=== PATIENT | female | born 1935 | race African-American/Black ===

== ENCOUNTER 2018-05-21 08:50 | Outpatient (CLI) | payer MEDICARE ==
--- NOTE | 2018-05-21 10:12 | MMO ---
Bilateral MAMMO Bilat Screen [facility]. CLINICAL HISTORY: Patient is 82 years old and is seen for screening. The patient has no family history of breast cancer. 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 VIEWS: The views performed were: right craniocaudal with tomosynthesis and right mediolateral oblique with tomosynthesis. FILMS COMPARED: The present examination has been compared to prior imaging studies performed at [facility] on 06/02/2006, 06/03/2006, 11/09/2006, 12/02/2007, 12/04/2008, 12/07/2009, 12/09/2010, 11/25/2011, 11/26/2012, 11/28/2013, 11/30/2014, 12/19/2015 and 12/19/2016, and at [facility] on 06/22/1998 and 05/16/2005. MAMMOGRAM FINDINGS: There are stable benign appearing calcifications seen in both breasts. There are also vascular calcifications. There are no suspicious masses, suspicious calcifications, or new areas of architectural distortion. IMPRESSION: THERE IS NO MAMMOGRAPHIC EVIDENCE OF MALIGNANCY. A ROUTINE FOLLOW-UP MAMMOGRAM IN 1 YEAR IS RECOMMENDED. THE RESULTS OF THIS EXAM WERE SENT TO THE PATIENT. ACR BI-RADS Category 2 - Benign finding MAMMOGRAPHY NOTE: 1. A negative mammogram report should not delay a biopsy if a dominant of clinically suspicious mass is present. 2. Approximately 10% to 15% of breast cancers are not detected by mammography. 3. Adenosis and dense breasts may obscure an underlying neoplasm.
== END 2018-05-21 08:51 | disposition home or self-care (01) ==
LOC: BICMAMMO 08:50
PROVIDERS: ATTEND Internal Medicine
DX: Z12.31 Encounter for screening mammogram for malignant neoplasm of breast (principal); Z90.12 Acquired absence of left breast and nipple
CPT/HCPCS: 77063; 77067

== ENCOUNTER 2018-07-19 10:57 | Inpatient (IN) | payer MEDICARE ==
[2018-07-19 11:44] LABS: Mean Corpuscular HGB CONC 36.2 g/dL (32.0-36.0); Mean Corpuscular Hemoglobin 29.6 pg (27.0-31.0); Mean Corpuscular Volume 81.9 fL (78.0-98.0); Mean Platelet Volume 6.8 fL (7.4-10.4); Platelet Count 205 thou/uL (130-400); RBC Distribution Width 12.6 % (11.5-14.5); Red Blood Cell (RBC) Count 4.38 mill/uL (4.20-5.40)
--- NOTE | 2018-07-19 11:47 | RAD ---
2 views of the chest: 07/19/2018 COMPARISON: None HISTORY: Cough, dyspnea FINDINGS: Hazy focal increased pulmonary parenchymal opacity noted within the left lung base. No pneu mothorax or pleural fluid. Right lung appears clear. IMPRESSION: Focal opacity in the left base suggesting infectious pneumonitis/aspiration. Recommend fo llow-up imaging following treatment to document resolution.
[2018-07-19 12:12] LABS: ALT (SGPT) 14 U/L (8-55); AST (SGOT) 23 U/L (5-34); Albumin 3.8 g/dL (3.4-4.8); Alkaline Phosphatase 92 U/L (40-150); Anion Gap 13 mmol/L (10-20); BUN (Urea Nitrogen) 13 mg/dL (9.8-20.1); Bilirubin, Total 1.8 mg/dL (0.2-1.2); Calc. Creatinine Clearance 0 mL/min (70-130); Calcium 9.5 mg/dL (7.8-10.44); Carbon Dioxide 26 mmol/L (23-31); Chloride 100 mmol/L (98-107); Estimated GFR-MDRD 71; Globulin 3.1 g/dL (2.4-3.5); Glucose 114 mg/dL (83-110); Potassium 3.4 mmol/L (3.5-5.1); Protein, Total 6.9 g/dL (6.0-8.3); Sodium 136 mmol/L (136-145)
[2018-07-19 12:13] LABS: Band 13 % (5-11); Eosinophils 1 % (0-10); Lymphocytes 7 % (21-51); MDiff Complete? YES; Monocytes 6 % (0-10); Neutrophil 73 % (42-75); Platelet Morphology Comment Appears Adequate; Polychromasia SLIGHT = 2-3 cells (100X) (0-2/hpf); Vacuoles SLIGHT
[2018-07-19] MEDS ORDERED: Piperacillin/Tazobactam 4.5 GM VIAL ONE (14:16)
--- NOTE | 2018-07-19 17:43 | HP ---
PRIMARY CARE PHYSICIAN: Dr. Lucian Unger. CHIEF COMPLAINT: "I was feeling sick." HISTORY OF PRESENT ILLNESS: Ms. Littlejohn is a very pleasant 83-year-old female, who has a history of hypertension as well as gastroesophageal reflux disease. She was in her usual state of health until Thursday night when she started having a sore throat. She says on Thursday, she just ate a few pieces of toast and that was about it. Then, she says she must have slept all day on Thursday, because she thought today was Thursday. She says that she has been sick in bed most of the day and that she says that she gargled earlier today and had some mucus come up with some specks of blood, but she did not really consider coughing with blood. She says that her son noticed that she had some fever and she noticed some pain in her left side, especially when she was taking a deep breath. For this reason, she came to the hospital for evaluation. Upon evaluation, she was found to have a left lower lobe infiltrate as well as leukocytosis and she is being admitted for pneumonia. REVIEW OF SYSTEMS: CONSTITUTIONAL: She has had subjective fever, but no chills, no night sweats, no weight loss, but decreased appetite. HEENT: No headaches. No dizziness. No visual changes. She has had some sore throat and scratchy throat, but no adenopathy. No neck pain. PULMONARY: As the history of present illness. CARDIOVASCULAR: She denies chest pain. No shortness of breath. No PND. No orthopnea. No lower extremity edema. GASTROINTESTINAL: She denies any abdominal pain. She did have some episode of nausea and vomiting as well as diarrhea on Thursday, but this has since resolved. GENITOURINARY: No urinary frequency, hematuria, or hesitancy. NEUROLOGIC: No focal weakness, numbness. No seizures. PSYCHIATRIC: No symptoms of anxiety or depression. SKIN AND INTEGUMENT: No skin changes. No rash. PAST MEDICAL HISTORY: Significant for hypertension, osteoarthritis, gastroesophageal reflux disease, coronary artery disease, and hyperlipidemia as well as anxiety. PAST SURGICAL HISTORY: She has had a right total knee replacement and a left mastectomy. ALLERGIES: NO KNOWN DRUG ALLERGIES. FAMILY HISTORY: Father had cancer, unknown type. Brother had hypertension. SOCIAL HISTORY: She is , has 4 children. She is a nonsmoker and nondrinker. She tells me she would not want to be resuscitated. This is after repeated questioning, she says she is not sure if her children know about this, but says she had filled out some paperwork back when she was in the hospital in [place], but says "she has not done it here." CURRENT MEDICATIONS: Unknown. She gets her medications through the mail order [facility] [employer]. PHYSICAL EXAMINATION: GENERAL: She is alert and oriented. She appears to be in no acute distress. She is well developed and well nourished. VITAL SIGNS: Blood pressure was 113/56, heart rate 69, respiratory rate of 20, and temperature is 98.7. HEENT: Her pupils are equal, round, and reactive to light and accommodation. Tympanic membrane, she had some clear fluid behind the left drum, but there is no bulging. No erythema. Throat, she is edentulous. However, her throat, there is no erythema, no exudates. No oral lesions. NECK: There is no adenopathy, no bruits. LUNGS: She has rales in the left base. No wheezing. No rhonchi. CARDIOVASCULAR: She has a normal S1 and S2. I did not appreciate an S3 or S4. No murmurs, clicks, or rubs. ABDOMEN: Soft. It is nontender and nondistended. Positive for bowel sounds. There is no rebound, no guarding, no organomegaly. EXTREMITIES: There is no edema, no calf tenderness, no joint effusions. NEUROLOGIC: Grossly nonfocal. Her muscle strength is 5/5 in both upper and lower extremities. SKIN AND INTEGUMENT: No skin changes. No rashes. LAB AND X-RAY: On her chest x-ray, heart size was normal and she has some obscuration of the left hemidiaphragm as well as some infiltrate in the left face, this is by my reading. White blood cell count was 21, hemoglobin of 13, hematocrit is 35.8, and platelet count is 205. Sodium 136, potassium 3.4, chloride was 100, CO2 is 26, BUN of 13, creatinine 0.92, glucose is 114, and total bilirubin is 1.8. ASSESSMENT: This is a pleasant 83-year-old female, who presents to the emergency room with subjective fever, poor appetite and what sounds like a pleuritic chest pain. She was found to have a left lower lobe infiltrate on x-ray as well as an elevated white blood cell count. The most likely etiology is a community-acquired pneumonia. She will be admitted to the medical floor, started on IV antibiotics to cover for community-acquired pneumonia. Since she had the episode of diarrhea, we will get a urine Legionella antigen as well, and follow up on blood and sputum culture results. Hypertension. We will need to reconcile and restart her medications as appropriate and we will also have p.r.n. medications available as needed and the patient will also be placed on deep venous thrombosis as well as gastrointestinal prophylaxis. Job ID: [id number]
[2018-07-19 18:16] VITALS: BMI 34.7
[2018-07-19] MEDS ORDERED: Benzonatate 100 MG CAP PO PRN (19:13)
[2018-07-19] MEDS ORDERED: hydrALAZINE 20 MG/ML VIAL SLOW IVP PRN (19:13)
[2018-07-19] MEDS ORDERED: HYDROcodone/Acetaminophen 5/325 mg Tablet PO PRN (19:13)
[2018-07-19] MEDS: Famotidine 20 MG TAB PO SCH (20:25)
[2018-07-19] MEDS: Acetaminophen 325 MG TAB PO PRN (20:25)
[2018-07-19] MEDS: Azithromycin 500 MG in Sodium Chloride 0.9% 250 ML 250 ML IVPB SCH (20:25)
[2018-07-19] MEDS ORDERED: Prevnar 13-Val Conj/PF 0.5 ML SYRINGE IM ONE (21:00)
[2018-07-19] MEDS: cefTRIAXone\\ROCEPHIN 2 GM in Sodium Chloride 0.9% 100 ML IVPB SCH (22:47)
[2018-07-20] MEDS: Acetaminophen 325 MG TAB PO PRN ×3 (05:45→19:27)
[2018-07-20 06:18] LABS: Anion Gap 14 mmol/L (10-20); BUN (Urea Nitrogen) 10 mg/dL (9.8-20.1); Calc. Creatinine Clearance 102 mL/min (70-130); Calcium 9.3 mg/dL (7.8-10.44); Carbon Dioxide 27 mmol/L (23-31); Chloride 99 mmol/L (98-107); Estimated GFR-MDRD 82; Glucose 111 mg/dL (83-110); Potassium 3.6 mmol/L (3.5-5.1); Sodium 136 mmol/L (136-145)
[2018-07-20 06:19] LABS: Legionella Urinary Ag Negative (Negative)
[2018-07-20 06:27] LABS: Band 10 % (5-11); Eosinophils 2 % (0-10); Hemoglobin 12.5 g/dL (12.0-16.0); Lymphocytes 12 % (21-51); MDiff Complete? YES; Mean Corpuscular HGB CONC 34.6 g/dL (32.0-36.0); Mean Corpuscular Volume 83.7 fL (78.0-98.0); Mean Platelet Volume 6.6 fL (7.4-10.4); Monocytes 15 % (0-10); Neutrophil 61 % (42-75); Platelet Count 203 thou/uL (130-400); RBC Distribution Width 12.7 % (11.5-14.5); Red Blood Cell (RBC) Count 4.31 mill/uL (4.20-5.40); White Blood Cell (WBC) Count 18.4 thou/uL (4.8-10.8)
[2018-07-20] MEDS: Enoxaparin Sodium 40 MG/0.4 ML SYRINGE SC SCH (08:43)
[2018-07-20] MEDS: Famotidine 20 MG TAB PO SCH ×2 (08:43→21:18)
--- NOTE | 2018-07-20 14:20 | PDOC.PN ---
- Subjective Encounter Start Date: 07/20/18 Encounter Start Time: 14:18 Ms. Littlejohn was seen today in follow-up of pneumonia. She says she feels much better. She still has a bit of cough with pleuritic chest pain. - Objective Resuscitation Status - Order Detail: 07/19/18 15:36 Resuscitation Status Routine Resuscitation Status: DNAR: NO Resuscitation Discussed with: Discussed with the patient MAR Reviewed: Yes Vital Signs & Weight: Vital Signs (12 hours) Temp Pulse Resp BP Pulse Ox 07/20/18 11:00 99.3 F 85 20 117/71 94 L 07/20/18 08:00 96 07/20/18 07:35 98.7 F 81 22 H 119/71 96 07/20/18 04:17 100.0 F H 85 14 134/76 93 L Weight Weight 271 lb I&O: 07/19/18 07/20/18 07/21/18 06:59 06:59 06:59 Intake Total 1209 Balance 1209 Result Diagrams: 07/20/18 05:23 07/20/18 05:22 Phys Exam - Physical Examination HEENT: PERRLA Respiratory: no wheezing, no rhonchi + rales at the left base, Cardiovascular: RRR, no significant murmur, no rub Gastrointestinal: soft, non-tender, no distention, positive bowel sounds Musculoskeletal: no edema, pulses present Dx/Plan (1) Pneumonia, community acquired Code(s): J18.9 - PNEUMONIA, UNSPECIFIED ORGANISM Status: Acute (2) Hypertension Code(s): I10 - ESSENTIAL (PRIMARY) HYPERTENSION Status: Chronic (3) CAD (coronary artery disease) Code(s): I25.10 - ATHSCL HEART DISEASE OF [place] CORONARY ARTERY W/O ANG PCTRS Status: Chronic - Plan * Pneumonia- continue Rocephin and Azithromycin. She is still having some fever , Leukocytosis has improved * HTN- blood pressure is controlled- will re-start her home medications. * CAD- stable- re-start home medications
[2018-07-20] MEDS: Azithromycin 500 MG in Sodium Chloride 0.9% 250 ML 250 ML IVPB SCH (19:27)
[2018-07-20] MEDS: cefTRIAXone\\ROCEPHIN 2 GM in Sodium Chloride 0.9% 100 ML IVPB SCH (21:18)
[2018-07-20] MEDS: DorzolamidE/Timolol 2%/0.5% Ophth Soln 10 ml Bottle EA EYE SCH (21:18)
[2018-07-20] MEDS: Latanoprost 0.005% Ophth Soln 2.5 ml Bottle EA EYE SCH (21:18)
[2018-07-20] MEDS: buPROPion 75 MG TAB PO SCH (21:19)
[2018-07-20] MEDS: Amitriptyline HCl 10 MG TAB PO SCH (21:19)
[2018-07-21] MEDS: Acetaminophen 325 MG TAB PO PRN ×3 (07:01→21:37)
[2018-07-21] MEDS ORDERED: Atenolol 25 MG TAB PO SCH (09:00)
[2018-07-21] MEDS: Aspirin 81 mg Enteric Coated Tablet PO SCH (09:34)
[2018-07-21] MEDS: Famotidine 20 MG TAB PO SCH ×2 (09:34→21:31)
[2018-07-21] MEDS: Atenolol 25 MG TAB PO SCH (09:34)
[2018-07-21] MEDS: buPROPion 75 MG TAB PO SCH ×2 (09:34→21:31)
[2018-07-21] MEDS: Atorvastatin Calcium 40 MG TAB PO SCH (09:35)
[2018-07-21] MEDS: Ezetimibe 10 MG TAB PO SCH (09:35)
[2018-07-21] MEDS: DorzolamidE/Timolol 2%/0.5% Ophth Soln 10 ml Bottle EA EYE SCH ×2 (09:36→21:31)
[2018-07-21] MEDS: Enoxaparin Sodium 40 MG/0.4 ML SYRINGE SC SCH (09:36)
--- NOTE | 2018-07-21 09:48 | PDOC.PN ---
- Subjective Encounter Start Date: 07/21/18 Encounter Start Time: 09:45 Subjective: f/u for LLL PNA on Rocephin/Zithromax. Feels better overall but still -: coughing. Tolerating po intake. - Objective Resuscitation Status - Order Detail: 07/19/18 15:36 Resuscitation Status Routine Resuscitation Status: DNAR: NO Resuscitation Discussed with: Discussed with the patient MAR Reviewed: Yes Vital Signs & Weight: Vital Signs (12 hours) Temp Pulse Resp BP Pulse Ox 07/21/18 08:22 98.5 F 72 18 135/75 96 07/21/18 07:49 99.1 F 91 20 135/75 91 L 07/21/18 05:44 99.5 F 07/21/18 03:57 100.0 F H 93 18 107/79 90 L 07/20/18 23:53 99.1 F 92 16 107/67 90 L Weight Weight 271 lb I&O: 07/20/18 07/21/18 07/22/18 06:59 06:59 06:59 Intake Total 1209 1996 Balance 1209 1996 Result Diagrams: 07/20/18 05:23 07/20/18 05:22 Additional Labs: Laboratory Tests 07/19/18 07/20/18 07/20/18 11:16 05:23 05:52 WBC 21.0 H Band Neuts % (Manual) 13 H 10 Ur L.pneumophila Ag Negative Radiology Reviewed by me: Yes (PCXR - LLL infiltrate) Phys Exam - Physical Examination Constitutional: NAD HEENT: PERRLA, sclera anicteric, oral pharynx no lesions Neck: no nodes, no JVD, supple, full ROM diminished in bases, few coarse sounds Respiratory: no wheezing Cardiovascular: RRR, no significant murmur, no rub, gallop Gastrointestinal: soft, non-tender, no distention, positive bowel sounds Musculoskeletal: no edema, pulses present Neurological: normal sensation, moves all 4 limbs Psychiatric: A&O x 3 Skin: normal turgor, cap refill <2 seconds Dx/Plan (1) Bacterial pneumonia Code(s): J15.9 - UNSPECIFIED BACTERIAL PNEUMONIA Status: Acute Comment: Suspected gm + cocci, continue Rocephin/Zithromax IV another 24h, likely transition to po option in am (2) Hypertension Code(s): I10 - ESSENTIAL (PRIMARY) HYPERTENSION Status: Chronic Qualifiers: Hypertension type: essential hypertension Qualified Code(s): I10 - Essential (primary) hypertension Comment: Resume home BP regimen, serial monitoring (3) Hypokalemia Code(s): E87.6 - HYPOKALEMIA Status: Acute Comment: Resolving, KCL supplementation (4) Neutrophilic leukocytosis Code(s): D72.9 - DISORDER OF WHITE BLOOD CELLS, UNSPECIFIED Status: Acute Comment: Secondary to #1, check CBC in am - Plan continue antibiotics, drug abuse social worker, out of bed/ambulate, DVT proph w/SCDs Stable currently -: Continue Rocephin/Zithromax IV -: OOB/ambulate -: Update Pneumo Vax -: AM lab: CBC * Likely home in 24h
--- NOTE | 2018-07-21 15:00 | PQF ---
DATE: 07-21-18 ATTN: DR. MIGUELITO JONES Please exercise your independent, professional judgment in responding to the clarification form. Clinical indicators are provided on the bottom of this form for your review Please check appropriate box(es): [ ] Sepsis due to: (Pna, , etc.) [ ] SIRS due to non-infectious process (please specify etiology) [ x ] Localized infection without sepsis [ ] Other diagnosis [ ] Unable to determine In addition, please specify: Present on Admission (POA): [ x ] Yes [ ] No [ ] Unable to determine For continuity of documentation, please document condition throughout progress notes and discharge summary. Thank You. CLINICAL INDICATORS - SIGNS / SYMPTOMS / LABS: ER DX: PNEUMONIA, LEUKOCYTOSIS H&P: MOST LIKELY ETIOLOGY IS A COMMUNITY-ACQUIRED PNEUMONIA ER: 88 ON RA, SOB, FORMER SMOKER PN DR. JONES 07-21-18: BACTERIAL PNEUMONIA, NEUTROPHILIC LEUCOCYTOSIS TEMP: ER: 99.2, 99.0, 07-19-18: 99.7, 102.0 07-20-18: 99.8, 100.0, 100.7 07-21-18: 100.0 RR: 07-20-18: 22, 22 RISK FACTORS: ER DX: PNEUMONIA, LEUKOCYTOSIS PN DR. JONES 07-21-18: BACTERIAL PNEUMONIA, NEUTROPHILIC LEUCOCYTOSIS ADVANCED AGE TREATMENTS: MAR: ZITHROMAX IV, ROCEPHIN IV ER: VANCOMYCIN IV, IVF NS, ZOSYN IV (This form is maintained as a part of the permanent medical record) 2014 [employer] All Rights Reserved JEAN PAUL [email or web address] Office: [phone] [facility]
[2018-07-21] MEDS: Azithromycin 500 MG in Sodium Chloride 0.9% 250 ML 250 ML IVPB SCH (19:28)
[2018-07-21] MEDS: Latanoprost 0.005% Ophth Soln 2.5 ml Bottle EA EYE SCH (21:31)
[2018-07-21] MEDS: Amitriptyline HCl 10 MG TAB PO SCH (21:31)
[2018-07-21] MEDS: cefTRIAXone\\ROCEPHIN 2 GM in Sodium Chloride 0.9% 100 ML IVPB SCH (21:31)
[2018-07-22] MEDS: Acetaminophen 325 MG TAB PO PRN ×2 (05:56→10:20)
[2018-07-22] MEDS: Aspirin 81 mg Enteric Coated Tablet PO SCH (08:21)
[2018-07-22] MEDS: Ezetimibe 10 MG TAB PO SCH (08:21)
[2018-07-22] MEDS: Famotidine 20 MG TAB PO SCH (08:21)
[2018-07-22] MEDS: buPROPion 75 MG TAB PO SCH (08:21)
[2018-07-22] MEDS: Atenolol 25 MG TAB PO SCH (08:21)
[2018-07-22] MEDS: Atorvastatin Calcium 40 MG TAB PO SCH (08:21)
[2018-07-22] MEDS: Enoxaparin Sodium 40 MG/0.4 ML SYRINGE SC SCH (08:22)
[2018-07-22] MEDS: DorzolamidE/Timolol 2%/0.5% Ophth Soln 10 ml Bottle EA EYE SCH (08:22)
[2018-07-22 09:30] LABS: Band 6 % (5-11); Eosinophils 4 % (0-10); Hemoglobin 11.9 g/dL (12.0-16.0); Lymphocytes 14 % (21-51); MDiff Complete? YES; Mean Corpuscular HGB CONC 35.4 g/dL (32.0-36.0); Mean Corpuscular Hemoglobin 29.2 pg (27.0-31.0); Mean Corpuscular Volume 82.4 fL (78.0-98.0); Mean Platelet Volume 6.3 fL (7.4-10.4); Monocytes 14 % (0-10); Neutrophil 59 % (42-75); Platelet Count 258 thou/uL (130-400); RBC Distribution Width 12.7 % (11.5-14.5); RBC Morphology Normal; Reactive Lymphocytes 3 % (0-10); Red Blood Cell (RBC) Count 4.09 mill/uL (4.20-5.40); White Blood Cell (WBC) Count 10.2 thou/uL (4.8-10.8)
--- NOTE | 2018-07-22 10:42 | DIS ---
DATE OF ADMISSION: 07/19/2018 DATE OF DISCHARGE: 07/22/2018 DISCHARGE DIAGNOSES: 1. Bacterial pneumonia, suspected gram-positive cocci, improved. 2. Hypertension, stable. 3. Hypokalemia, resolved. 4. Neutrophilic leukocytosis, resolved. CONSULTATIONS: None. PERTINENT LABORATORY AND X-RAY FINDINGS: Potassium ranged between 3.4 to 3.6. CBC showed a white blood cell count ranging between 10.2 to 21.0. Urine Legionella pneumophila antigen negative on 07/20/2018. Portable chest x-ray dated 07/19/2018, showed focal opacity in the left lung base. HOSPITAL COURSE: The patient was admitted to the medical floor and she presented with generalized weakness with associated cough and pain on her left flank region. The patient underwent general evaluation including chest imaging showing focal opacity in the left lower lobe concerning for pneumonia. The patient was placed on IV Rocephin and Zithromax and given general supportive management. The patient did receive DuoNeb for bronchodilation and oxygen support, however, was weaned off oxygen therapy by the time of discharge. The patient clinically improved with IV antibiotic therapy and general supportive care. I have examined the patient at the time of discharge and discussed followup instructions. The patient verbalized understanding and in agreement, ready for discharge on 07/22/2018. DISCHARGE MEDICATIONS: 1. Levaquin 750 mg p.o. daily x7 days. 2. Elavil 10 mg p.o. at bedtime. 3. Enteric-coated aspirin 81 mg p.o. daily. 4. Atenolol 12.5 mg p.o. daily. 5. Lipitor 40 mg p.o. daily. 6. Wellbutrin 75 mg p.o. b.i.d. 7. Cosopt ophthalmic solution one drop to each eye b.i.d. 8. Zetia 10 mg p.o. daily. 9. Lansoprazole 30 mg p.o. daily. 10. Latanoprost 0.05% one drop to each eye at bedtime. 11. Triamterene/hydrochlorothiazide 37.5/25 mg 1 tab p.o. daily. FOLLOWUP: The patient to follow up with her primary care provider, Dr. Lucian singh within 7 days of discharge. CONDITION ON DISCHARGE: Stable. ACTIVITY: Ad-bhargav. DIET: Heart healthy. CODE STATUS: Do not attempt resuscitation. DISPOSITION: To home on 07/22/2018. Job ID: [id number]
[2018-07-22 11:21] VITALS: TEMP 98.8
[2018-07-22 12:42] VITALS: BP 132/76
--- NOTE | 2018-07-24 17:02 | EKG ---
Test Reason : Blood Pressure : / mmHG Vent. Rate : 077 BPM Atrial Rate : 077 BPM P-R Int : 216 ms QRS Dur : 086 ms QT Int : 398 ms P-R-T Axes : 021 -17 047 degrees QTc Int : 450 ms Sinus rhythm with 1st degree A-V block Moderate voltage criteria for LVH, may be normal variant Nonspecific T wave abnormality Abnormal ECG Confirmed by RAVEN YANG MD ([id number]), editor book ELIAS ABDI ([id number]) on 07/24/2018 5:02:43 PM Referred By: Confirmed By:RAVEN YANG MD
== END 2018-07-22 14:50 | disposition home or self-care (01) | DRG 195 ==
LOC: ERS 10:57 → T4-A 14:30
PROVIDERS: ADMIT Internal Medicine; ATTEND Internal Medicine
DX: J18.9 Pneumonia, unspecified organism (principal); Z66 Do not resuscitate; I10 Essential (primary) hypertension; E87.6 Hypokalemia; E78.5 Hyperlipidemia, unspecified; F41.9 Anxiety disorder, unspecified; M19.90 Unspecified osteoarthritis, unspecified site; K21.9 Gastro-esophageal reflux disease without esophagitis; D72.9 Disorder of white blood cells, unspecified; I25.10 Atherosclerotic heart disease of native coronary artery without angina pectoris; Z96.651 Presence of right artificial knee joint; Z87.891 Personal history of nicotine dependence; Z90.12 Acquired absence of left breast and nipple
CPT/HCPCS: 36415; 71046; 80048; 80053; 83605; 84484; 85007; 85025; 85027; 87899; 93005; 96361; 96365; 96367; J0456; J0696; J1650; J2543; J3370; J3490; J7050

== ENCOUNTER 2019-06-10 12:50 | Outpatient (CLI) | payer MEDICARE ==
--- NOTE | 2019-06-10 13:39 | MMO ---
Bilateral MAMMO Bilat Screen [facility]. CLINICAL HISTORY: Patient is 83 years old and is seen for screening. The patient has no family history of breast cancer. 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 VIEWS: The views performed were: right craniocaudal with tomosynthesis and right mediolateral oblique with tomosynthesis. FILMS COMPARED: The present examination has been compared to prior imaging studies performed at [facility] on 11/30/2014, 12/19/2015, 12/19/2016 and 05/21/2018. This study has been interpreted with the assistance of computer-aided detection. MAMMOGRAM FINDINGS: There are scattered fibroglandular densities. There are benign appearing and vascular calcifications seen in the right breast. There are no suspicious masses, suspicious calcifications, or new areas of architectural distortion. IMPRESSION: THERE IS NO MAMMOGRAPHIC EVIDENCE OF MALIGNANCY. A ROUTINE FOLLOW-UP MAMMOGRAM IN 1 YEAR IS RECOMMENDED. THE RESULTS OF THIS EXAM WERE SENT TO THE PATIENT. ACR BI-RADS Category 2 - Benign finding MAMMOGRAPHY NOTE: 1. A negative mammogram report should not delay a biopsy if a dominant of clinically suspicious mass is present. 2. Approximately 10% to 15% of breast cancers are not detected by mammography. 3. Adenosis and dense breasts may obscure an underlying neoplasm. Reported by: DIANA RAMIREZ MD Electonically Signed: [id number]
== END 2019-06-10 12:51 | disposition home or self-care (01) ==
LOC: BICMAMMO 12:50
PROVIDERS: ATTEND Internal Medicine
DX: Z12.31 Encounter for screening mammogram for malignant neoplasm of breast (principal); Z90.12 Acquired absence of left breast and nipple
CPT/HCPCS: 77063; 77067

== ENCOUNTER 2020-06-12 10:20 | Outpatient (CLI) | payer MEDICARE | END 2020-06-12 10:21 | disposition home or self-care (01) | LOC: BICMAMMO 10:20 | PROVIDERS: ATTEND Internal Medicine | DX: Z12.31 Encounter for screening mammogram for malignant neoplasm of breast (principal); Z90.12 Acquired absence of left breast and nipple | CPT/HCPCS: 77063; 77067 ==

== ENCOUNTER 2021-06-20 08:23 | Outpatient (CLI) | payer MEDICARE | END 2021-06-20 08:24 | disposition home or self-care (01) | LOC: BICMAMMO 08:23 | PROVIDERS: ATTEND Internal Medicine | DX: Z12.31 Encounter for screening mammogram for malignant neoplasm of breast (principal); Z85.3 Personal history of malignant neoplasm of breast; Z90.12 Acquired absence of left breast and nipple | CPT/HCPCS: 77063; 77067 ==

== ENCOUNTER 2021-07-12 19:06 | Inpatient (IN) | payer MEDICARE ==
[~2021-07-12 19:06] MED LIST: Iopamidol-370 76% 500 ML 1 ML ONE
[2021-07-12 20:00] LABS: #Eosinphils 0.1 thou/uL (0.0-0.7); #Lymphocytes 1.4 thou/uL (1.20-3.40); #Monocytes 0.7 thou/uL (0.11-0.59); #Neutrophils 4.7 thou/uL (1.40-6.50); %Basophils 0.4 % (0.0-1.0); %Lymphocytes 19.7 % (21.0-51.0); %Monocytes 10.1 % (0.0-10.0); %Neutrophils 67.8 % (42.0-75.0); Hemoglobin 13.2 g/dL (12.0-16.0); Mean Corpuscular HGB CONC 34.8 g/dL (32.0-36.0); Mean Corpuscular Hemoglobin 29.6 pg (27.0-31.0); Mean Corpuscular Volume 85.1 fL (78.0-98.0); Platelet Count 223 thou/uL (130-400); RBC Distribution Width 12.8 % (11.5-14.5); Red Blood Cell (RBC) Count 4.46 mill/uL (4.20-5.40)
[2021-07-12 20:21] LABS: ALT (SGPT) 10 U/L (8-55); AST (SGOT) 16 U/L (5-34); Albumin 4.1 g/dL (3.4-4.8); Alkaline Phosphatase 72 U/L (40-110); Anion Gap 15 mmol/L (10-20); BUN (Urea Nitrogen) 17 mg/dL (9.8-20.1); Bilirubin, Total 1.3 mg/dL (0.2-1.2); Calc. Creatinine Clearance 0 mL/min (70-130); Calcium 9.3 mg/dL (7.8-10.44); Carbon Dioxide 27 mmol/L (23-31); Chloride 100 mmol/L (98-107); Globulin 2.4 g/dL (2.4-3.5); Glucose 140 mg/dL (83-110); Lipase 15 U/L (8-78); Protein, Total 6.5 g/dL (5.8-8.1); Sodium 139 mmol/L (136-145)
[2021-07-12 20:23] LABS: Potassium 2.7 mmol/L (3.5-5.1)
[2021-07-12] MEDS ORDERED: Potassium Chloride 20 MEQ/100 ML PREMIX BAG ONE (20:38)
[2021-07-12] MEDS ORDERED: Potassium Chloride 20 MEQ TAB ONE (20:39)
[2021-07-12] MEDS ORDERED: cefTRIAXone\\ROCEPHIN 1 GM VIAL ONE (22:32)
[2021-07-12] MEDS ORDERED: Ondansetron PF 4 MG/2 ML Vial IVP PRN (23:14)
[2021-07-12] MEDS ORDERED: Bisacodyl 5 MG TAB PO PRN (23:14)
[2021-07-12] MEDS ORDERED: Zolpidem Tartrate 5 MG TAB PO PRN (23:14)
[2021-07-12] MEDS ORDERED: HYDROcodone/Acetaminophen 7.5/325 mg Tablet PO PRN (23:14)
[2021-07-12] MEDS ORDERED: Acetaminophen 325 MG TAB PO PRN (23:14)
[2021-07-12 23:26] LABS: SARS-CoV-2 NAA Rapid Test Not Detected (NotDetected)
[2021-07-12] MEDS ORDERED: Potassium Chloride 20 MEQ TAB PO SCH (23:30)
[2021-07-12 23:44] LABS: Magnesium 1.6 mg/dL (1.6-2.6)
[2021-07-13] MEDS: cefTRIAXone\\ROCEPHIN 2 GM in Sodium Chloride 0.9% 100 ML IVPB SCH (00:41)
[2021-07-13 01:03] VITALS: BMI 32.3
[2021-07-13] MEDS: NS 0.9% w/ 20 MEQ KCL 1,000 ML/1,000 ML BAG IV SCH ×2 (02:22→16:21)
[2021-07-13 04:45] LABS: #Lymphocytes 1.4 thou/uL (1.20-3.40); #Monocytes 0.6 thou/uL (0.11-0.59); #Neutrophils 5.1 thou/uL (1.40-6.50); %Basophils 0.3 % (0.0-1.0); %Eosinophils 0.2 % (0.0-10.0); %Lymphocytes 19.5 % (21.0-51.0); %Monocytes 8.8 % (0.0-10.0); %Neutrophils 71.2 % (42.0-75.0); Hemoglobin 12.6 g/dL (12.0-16.0); Mean Corpuscular HGB CONC 33.5 g/dL (32.0-36.0); Mean Corpuscular Hemoglobin 29.7 pg (27.0-31.0); Mean Corpuscular Volume 88.7 fL (78.0-98.0); Mean Platelet Volume 6.2 fL (7.4-10.4); Platelet Count 213 thou/uL (130-400); RBC Distribution Width 12.7 % (11.5-14.5); Red Blood Cell (RBC) Count 4.24 mill/uL (4.20-5.40); White Blood Cell (WBC) Count 7.2 thou/uL (4.8-10.8)
[2021-07-13 05:01] LABS: ALT (SGPT) 8 U/L (8-55); AST (SGOT) 16 U/L (5-34); Albumin 3.6 g/dL (3.4-4.8); Alkaline Phosphatase 65 U/L (40-110); Anion Gap 14 mmol/L (10-20); BUN (Urea Nitrogen) 16 mg/dL (9.8-20.1); Bilirubin, Total 0.6 mg/dL (0.2-1.2); Calc. Creatinine Clearance 91 mL/min (70-130); Calcium 8.8 mg/dL (7.8-10.44); Carbon Dioxide 24 mmol/L (23-31); Chloride 103 mmol/L (98-107); Globulin 2.6 g/dL (2.4-3.5); Glucose 108 mg/dL (83-110); Magnesium 1.7 mg/dL (1.6-2.6); Potassium 3.7 mmol/L (3.5-5.1); Protein, Total 6.2 g/dL (5.8-8.1); Sodium 137 mmol/L (136-145)
[2021-07-13] MEDS ORDERED: Electrolyte Replacement Protocol 1 EACH FS SCH (08:30)
[2021-07-13] MEDS ORDERED: Electrolyte Replacement Protocol FS PRN (08:45)
[2021-07-13] MEDS ORDERED: Magnesium 2 GM/50 ML(in water) 2 GM in Premix Bag 1 BAG IVPB SCH (09:00)
[2021-07-13] MEDS ORDERED: Atenolol 25 MG TAB PO SCH (09:00)
[2021-07-13] MEDS: Enoxaparin Sodium 40 MG/0.4 ML SYRINGE SC SCH (09:55)
[2021-07-13] MEDS: Ezetimibe 10 MG TAB PO SCH (09:55)
[2021-07-13] MEDS: Aspirin 81 mg Enteric Coated Tablet PO SCH (09:55)
[2021-07-13] MEDS: DorzolamidE/Timolol 2%/0.5% Ophth Soln 10 ml Bottle EA EYE SCH ×2 (11:35→20:47)
[2021-07-13] MEDS: Saccharomyces boulardii 250 MG CAP PO SCH (20:47)
[2021-07-13] MEDS: Latanoprost 0.005% Ophth Soln 2.5 ml Bottle EA EYE SCH (20:51)
[2021-07-14] MEDS: cefTRIAXone\\ROCEPHIN 2 GM in Sodium Chloride 0.9% 100 ML IVPB SCH (00:49)
[2021-07-14 05:06] LABS: #Eosinphils 0.1 thou/uL (0.0-0.7); #Lymphocytes 1.8 thou/uL (1.20-3.40); #Monocytes 0.5 thou/uL (0.11-0.59); %Basophils 0.7 % (0.0-1.0); %Monocytes 11.9 % (0.0-10.0); %Neutrophils 44.5 % (42.0-75.0); Hemoglobin 11.7 g/dL (12.0-16.0); Mean Corpuscular HGB CONC 34.4 g/dL (32.0-36.0); Mean Corpuscular Hemoglobin 30.4 pg (27.0-31.0); Mean Corpuscular Volume 88.5 fL (78.0-98.0); Mean Platelet Volume 6.5 fL (7.4-10.4); Platelet Count 184 thou/uL (130-400); RBC Distribution Width 12.8 % (11.5-14.5); Red Blood Cell (RBC) Count 3.85 mill/uL (4.20-5.40); White Blood Cell (WBC) Count 4.5 thou/uL (4.8-10.8)
[2021-07-14 05:15] LABS: ALT (SGPT) 9 U/L (8-55); AST (SGOT) 15 U/L (5-34); Albumin 3.3 g/dL (3.4-4.8); Alkaline Phosphatase 58 U/L (40-110); Anion Gap 9 mmol/L (10-20); BUN (Urea Nitrogen) 13 mg/dL (9.8-20.1); Bilirubin, Total 0.6 mg/dL (0.2-1.2); CRP (Inflammatory) Less than 0.50 mg/dL (= or < 0.5); Calc. Creatinine Clearance 91 mL/min (70-130); Calcium 8.5 mg/dL (7.8-10.44); Carbon Dioxide 29 mmol/L (23-31); Chloride 107 mmol/L (98-107); Globulin 2.3 g/dL (2.4-3.5); Glucose 96 mg/dL (83-110); Magnesium 1.9 mg/dL (1.6-2.6); Phosphorus 2.6 mg/dL (2.3-4.7); Potassium 3.6 mmol/L (3.5-5.1); Protein, Total 5.6 g/dL (5.8-8.1); Sodium 141 mmol/L (136-145)
[2021-07-14] MEDS ORDERED: Magnesium 2 GM/50 ML(in water) 2 GM in Premix Bag 1 BAG IVPB SCH (06:00)
[2021-07-14] MEDS: NS 0.9% w/ 20 MEQ KCL 1,000 ML/1,000 ML BAG IV SCH ×2 (06:26→20:40)
[2021-07-14] MEDS: Enoxaparin Sodium 40 MG/0.4 ML SYRINGE SC SCH (09:23)
[2021-07-14] MEDS: DorzolamidE/Timolol 2%/0.5% Ophth Soln 10 ml Bottle EA EYE SCH ×2 (09:23→20:38)
[2021-07-14] MEDS: Aspirin 81 mg Enteric Coated Tablet PO SCH (09:23)
[2021-07-14] MEDS: Ezetimibe 10 MG TAB PO SCH (09:24)
[2021-07-14] MEDS: Saccharomyces boulardii 250 MG CAP PO SCH (20:33)
[2021-07-14] MEDS: Latanoprost 0.005% Ophth Soln 2.5 ml Bottle EA EYE SCH (20:34)
[2021-07-15] MEDS: cefTRIAXone\\ROCEPHIN 2 GM in Sodium Chloride 0.9% 100 ML IVPB SCH ×2 (00:23→23:55)
[2021-07-15 05:16] LABS: #Basophils 0.1 thou/uL (0.0-0.2); #Eosinphils 0.2 thou/uL (0.0-0.7); #Lymphocytes 1.6 thou/uL (1.20-3.40); #Monocytes 0.6 thou/uL (0.11-0.59); #Neutrophils 2.9 thou/uL (1.40-6.50); %Eosinophils 3.4 % (0.0-10.0); %Lymphocytes 29.5 % (21.0-51.0); %Monocytes 11.5 % (0.0-10.0); %Neutrophils 54.6 % (42.0-75.0); Hemoglobin 11.4 g/dL (12.0-16.0); Mean Corpuscular HGB CONC 33.3 g/dL (32.0-36.0); Mean Corpuscular Hemoglobin 29.6 pg (27.0-31.0); Mean Corpuscular Volume 88.8 fL (78.0-98.0); Mean Platelet Volume 6.1 fL (7.4-10.4); Platelet Count 176 thou/uL (130-400); RBC Distribution Width 12.9 % (11.5-14.5); Red Blood Cell (RBC) Count 3.86 mill/uL (4.20-5.40); White Blood Cell (WBC) Count 5.4 thou/uL (4.8-10.8)
[2021-07-15 05:40] LABS: Anion Gap 9 mmol/L (10-20); BUN (Urea Nitrogen) 10 mg/dL (9.8-20.1); Calc. Creatinine Clearance 100 mL/min (70-130); Calcium 8.7 mg/dL (7.8-10.44); Carbon Dioxide 26 mmol/L (23-31); Chloride 107 mmol/L (98-107); Glucose 97 mg/dL (83-110); Potassium 3.6 mmol/L (3.5-5.1); Sodium 138 mmol/L (136-145)
[2021-07-15] MEDS: Ezetimibe 10 MG TAB PO SCH (09:00)
[2021-07-15] MEDS: Aspirin 81 mg Enteric Coated Tablet PO SCH (09:00)
[2021-07-15] MEDS: DorzolamidE/Timolol 2%/0.5% Ophth Soln 10 ml Bottle EA EYE SCH ×2 (09:00→19:59)
[2021-07-15] MEDS: Enoxaparin Sodium 40 MG/0.4 ML SYRINGE SC SCH (09:00)
[2021-07-15] MEDS ORDERED: Magnesium 2 GM/50 ML(in water) 2 GM in Premix Bag 1 BAG IVPB SCH (09:30)
[2021-07-15] MEDS: Saccharomyces boulardii 250 MG CAP PO SCH (19:57)
[2021-07-15] MEDS: Latanoprost 0.005% Ophth Soln 2.5 ml Bottle EA EYE SCH (19:58)
[2021-07-15] MEDS ORDERED: Ezetimibe 10 MG TAB PO SCH (21:00)
[2021-07-16 04:53] LABS: #Eosinphils 0.2 thou/uL (0.0-0.7); #Lymphocytes 1.5 thou/uL (1.20-3.40); #Monocytes 0.6 thou/uL (0.11-0.59); #Neutrophils 3.1 thou/uL (1.40-6.50); %Basophils 0.3 % (0.0-1.0); %Eosinophils 3.6 % (0.0-10.0); %Lymphocytes 27.4 % (21.0-51.0); %Monocytes 10.2 % (0.0-10.0); %Neutrophils 58.4 % (42.0-75.0); Hemoglobin 11.6 g/dL (12.0-16.0); Mean Corpuscular HGB CONC 34.6 g/dL (32.0-36.0); Mean Corpuscular Hemoglobin 29.9 pg (27.0-31.0); Mean Corpuscular Volume 86.3 fL (78.0-98.0); Mean Platelet Volume 6.3 fL (7.4-10.4); Platelet Count 197 thou/uL (130-400); Red Blood Cell (RBC) Count 3.89 mill/uL (4.20-5.40); White Blood Cell (WBC) Count 5.3 thou/uL (4.8-10.8)
[2021-07-16 05:21] LABS: Anion Gap 11 mmol/L (10-20); BUN (Urea Nitrogen) 10 mg/dL (9.8-20.1); Calc. Creatinine Clearance 91 mL/min (70-130); Calcium 8.6 mg/dL (7.8-10.44); Carbon Dioxide 25 mmol/L (23-31); Chloride 107 mmol/L (98-107); Glucose 99 mg/dL (83-110); Magnesium 1.9 mg/dL (1.6-2.6); Phosphorus 2.7 mg/dL (2.3-4.7); Potassium 3.7 mmol/L (3.5-5.1); Sodium 139 mmol/L (136-145)
[2021-07-16] MEDS: Magnesium 2 GM/50 ML(in water) 2 GM in Premix Bag 1 BAG IVPB SCH ×2 (09:48→11:00)
[2021-07-16] MEDS: DorzolamidE/Timolol 2%/0.5% Ophth Soln 10 ml Bottle EA EYE SCH (09:49)
[2021-07-16] MEDS: Aspirin 81 mg Enteric Coated Tablet PO SCH (09:49)
[2021-07-16] MEDS: Enoxaparin Sodium 40 MG/0.4 ML SYRINGE SC SCH (09:50)
[2021-07-16 19:33] VITALS: BP 151/79; TEMP 98.1
== END 2021-07-16 19:50 | disposition home or self-care (01) | DRG 640 ==
LOC: ERS 19:06 → 2NO 23:18
PROVIDERS: ADMIT Internal Medicine; ATTEND Internal Medicine
DX: E87.6 Hypokalemia (principal); J18.9 Pneumonia, unspecified organism; J98.11 Atelectasis; E78.5 Hyperlipidemia, unspecified; K21.9 Gastro-esophageal reflux disease without esophagitis; I25.10 Atherosclerotic heart disease of native coronary artery without angina pectoris; M19.90 Unspecified osteoarthritis, unspecified site; Z66 Do not resuscitate; N18.2 Chronic kidney disease, stage 2 (mild); F41.9 Anxiety disorder, unspecified; H40.9 Unspecified glaucoma; I49.5 Sick sinus syndrome; I37.1 Nonrheumatic pulmonary valve insufficiency; I49.9 Cardiac arrhythmia, unspecified; I12.9 Hypertensive chronic kidney disease with stage 1 through stage 4 chronic kidney disease, or unspecified chronic kidney disease; I44.0 Atrioventricular block, first degree; E83.42 Hypomagnesemia; Z96.651 Presence of right artificial knee joint; Z20.822 Contact with and (suspected) exposure to COVID-19; Z79.82 Long term (current) use of aspirin; Z79.899 Other long term (current) drug therapy; Z90.10 Acquired absence of unspecified breast and nipple
CPT/HCPCS: 36415; 36416; 71275; 74177; 80048; 80053; 82533; 82607; 82746; 83605; 83690; 83735; 83880; 84100; 84145; 84443; 84484; 85025; 86140; 87040; 87804; 93005; 93306; 93880; 94760; 96361; 96365; J0696; J1650; J3475; J3480; J3490; Q9967; U0002

== ENCOUNTER 2021-09-29 18:04 | Inpatient (IN) | payer MEDICARE ==
[2021-09-29 18:42] LABS: #Eosinphils 0.1 thou/uL (0.0-0.7); #Lymphocytes 1.4 thou/uL (1.20-3.40); #Monocytes 0.5 thou/uL (0.11-0.59); #Neutrophils 3.8 thou/uL (1.40-6.50); %Basophils 0.3 % (0.0-1.0); %Eosinophils 1.1 % (0.0-10.0); %Lymphocytes 24.2 % (21.0-51.0); %Monocytes 8.9 % (0.0-10.0); %Neutrophils 65.5 % (42.0-75.0); Hemoglobin 13.4 g/dL (12.0-16.0); Mean Corpuscular HGB CONC 34.9 g/dL (32.0-36.0); Mean Corpuscular Hemoglobin 29.8 pg (27.0-31.0); Mean Corpuscular Volume 85.3 fL (78.0-98.0); Mean Platelet Volume 6.5 fL (7.4-10.4); Platelet Count 225 thou/uL (130-400); RBC Distribution Width 13.2 % (11.5-14.5); Red Blood Cell (RBC) Count 4.49 mill/uL (4.20-5.40); White Blood Cell (WBC) Count 5.8 thou/uL (4.8-10.8)
[2021-09-29] MEDS ORDERED: Aspirin Chewable 81 MG TAB ONE (19:00)
[2021-09-29 19:05] LABS: ALT (SGPT) 11 U/L (8-55); AST (SGOT) 16 U/L (5-34); Albumin 4.3 g/dL (3.4-4.8); Alkaline Phosphatase 77 U/L (40-110); Anion Gap 17 mmol/L (10-20); BUN (Urea Nitrogen) 22 mg/dL (9.8-20.1); Bilirubin, Total 1.6 mg/dL (0.2-1.2); Calc. Creatinine Clearance 0 mL/min (70-130); Calcium 10.2 mg/dL (7.8-10.44); Carbon Dioxide 25 mmol/L (23-31); Chloride 99 mmol/L (98-107); Estimated GFR 49; Glucose 136 mg/dL (83-110); Lipase 20 U/L (8-78); Magnesium 1.7 mg/dL (1.6-2.6); Protein, Total 7.3 g/dL (5.8-8.1); Sodium 138 mmol/L (136-145)
[2021-09-29 19:11] LABS: Potassium 2.9 mmol/L (3.5-5.1)
[2021-09-29] MEDS ORDERED: Potassium Chloride 20 MEQ TAB ONE (19:26)
[2021-09-29] MEDS ORDERED: Magnesium 2 GM/50 ML BAG (IN WATER) ONE (19:26)
[2021-09-29] MEDS ORDERED: Cefepime 2 GM VIAL ONE ×2 (21:37→21:40)
[2021-09-29] MEDS ORDERED: Acetaminophen 325 MG TAB PO PRN (22:09)
[2021-09-29] MEDS ORDERED: Ondansetron PF 4 MG/2 ML Vial IVP PRN (22:09)
[2021-09-29] MEDS ORDERED: Vancomycin 1 GM/200 ML BAG ONE (22:43)
[2021-09-29 23:10] LABS: Troponin I Less than 0.010 ng/mL (< 0.028)
[2021-09-30 00:22] LABS: SARS-CoV-2 NAA Rapid Test Not Detected (NotDetected)
[2021-09-30 01:20] VITALS: BMI 30.1
[2021-09-30 02:00] LABS: Troponin I Less than 0.010 ng/mL (< 0.028)
[2021-09-30 04:47] LABS: #Lymphocytes 1.3 thou/uL (1.20-3.40); #Monocytes 0.5 thou/uL (0.11-0.59); #Neutrophils 5.7 thou/uL (1.40-6.50); %Basophils 0.4 % (0.0-1.0); %Eosinophils 0.2 % (0.0-10.0); %Lymphocytes 17.1 % (21.0-51.0); %Monocytes 7.1 % (0.0-10.0); %Neutrophils 75.2 % (42.0-75.0); Hemoglobin 12.4 g/dL (12.0-16.0); Mean Corpuscular HGB CONC 35.4 g/dL (32.0-36.0); Mean Corpuscular Hemoglobin 30.4 pg (27.0-31.0); Mean Corpuscular Volume 86.1 fL (78.0-98.0); Mean Platelet Volume 6.6 fL (7.4-10.4); Platelet Count 202 thou/uL (130-400); RBC Distribution Width 12.9 % (11.5-14.5); Red Blood Cell (RBC) Count 4.07 mill/uL (4.20-5.40); White Blood Cell (WBC) Count 7.5 thou/uL (4.8-10.8)
[2021-09-30 05:05] LABS: Anion Gap 16 mmol/L (10-20); BUN (Urea Nitrogen) 19 mg/dL (9.8-20.1); Calc. Creatinine Clearance 74 mL/min (70-130); Calcium 9.4 mg/dL (7.8-10.44); Carbon Dioxide 22 mmol/L (23-31); Chloride 104 mmol/L (98-107); Estimated GFR 63; Glucose 97 mg/dL (83-110); Magnesium 2.1 mg/dL (1.6-2.6); Potassium 3.8 mmol/L (3.5-5.1); Sodium 138 mmol/L (136-145)
[2021-09-30] MEDS: Enoxaparin Sodium 40 MG/0.4 ML SYRINGE SC SCH (08:39)
[2021-09-30] MEDS ORDERED: Sodium Chloride 0.9% 1,000 ML IV SCH (11:00)
[2021-10-01 04:44] LABS: #Eosinphils 0.1 thou/uL (0.0-0.7); #Lymphocytes 1.8 thou/uL (1.20-3.40); #Monocytes 0.6 thou/uL (0.11-0.59); #Neutrophils 2.7 thou/uL (1.40-6.50); %Basophils 0.8 % (0.0-1.0); %Lymphocytes 34.2 % (21.0-51.0); Hemoglobin 11.5 g/dL (12.0-16.0); Mean Corpuscular Hemoglobin 29.2 pg (27.0-31.0); Mean Corpuscular Volume 85.8 fL (78.0-98.0); Mean Platelet Volume 6.6 fL (7.4-10.4); Platelet Count 204 thou/uL (130-400); RBC Distribution Width 13.1 % (11.5-14.5); Red Blood Cell (RBC) Count 3.93 mill/uL (4.20-5.40); White Blood Cell (WBC) Count 5.3 thou/uL (4.8-10.8)
[2021-10-01 05:06] LABS: Anion Gap 14 mmol/L (10-20); BUN (Urea Nitrogen) 16 mg/dL (9.8-20.1); Calc. Creatinine Clearance 78 mL/min (70-130); Calcium 9.3 mg/dL (7.8-10.44); Carbon Dioxide 26 mmol/L (23-31); Chloride 104 mmol/L (98-107); Estimated GFR 67; Glucose 110 mg/dL (83-110); Magnesium 1.8 mg/dL (1.6-2.6); Potassium 3.7 mmol/L (3.5-5.1); Sodium 140 mmol/L (136-145)
[2021-10-01] MEDS: Enoxaparin Sodium 40 MG/0.4 ML SYRINGE SC SCH (08:29)
[2021-10-01] MEDS ORDERED: CEFAZOLIN 2 GM in Sodium Chloride 0.9% 100 ML IVPB SCH (23:00)
[2021-10-02 04:40] LABS: #Eosinphils 0.1 thou/uL (0.0-0.7); #Lymphocytes 1.8 thou/uL (1.20-3.40); #Monocytes 0.6 thou/uL (0.11-0.59); #Neutrophils 2.3 thou/uL (1.40-6.50); %Basophils 0.4 % (0.0-1.0); %Eosinophils 2.3 % (0.0-10.0); %Lymphocytes 37.5 % (21.0-51.0); %Monocytes 11.9 % (0.0-10.0); %Neutrophils 47.9 % (42.0-75.0); Hemoglobin 11.8 g/dL (12.0-16.0); Mean Corpuscular HGB CONC 35.8 g/dL (32.0-36.0); Mean Corpuscular Hemoglobin 30.7 pg (27.0-31.0); Mean Corpuscular Volume 85.8 fL (78.0-98.0); Mean Platelet Volume 6.4 fL (7.4-10.4); Platelet Count 192 thou/uL (130-400); RBC Distribution Width 13.1 % (11.5-14.5); Red Blood Cell (RBC) Count 3.85 mill/uL (4.20-5.40); White Blood Cell (WBC) Count 4.8 thou/uL (4.8-10.8)
[2021-10-02 05:00] LABS: Anion Gap 13 mmol/L (10-20); BUN (Urea Nitrogen) 12 mg/dL (9.8-20.1); Calc. Creatinine Clearance 80 mL/min (70-130); Calcium 9.3 mg/dL (7.8-10.44); Carbon Dioxide 26 mmol/L (23-31); Chloride 104 mmol/L (98-107); Estimated GFR 70; Glucose 91 mg/dL (83-110); Magnesium 1.7 mg/dL (1.6-2.6); Potassium 3.5 mmol/L (3.5-5.1); Sodium 139 mmol/L (136-145)
[2021-10-02] MEDS ORDERED: Lidocaine 1% MPF 2 ML VIAL ONE ×3 (06:41→06:42)
[2021-10-02] MEDS ORDERED: CEFAZOLIN 1 GM VIAL ONE (06:43)
[2021-10-02] MEDS ORDERED: ceFAZolin 2 GM/Dextrose 50 ML IVPB ONE (06:43)
[2021-10-02] MEDS ORDERED: Gentamicin 80 MG/50 ML BAG ONE (06:45)
[2021-10-02] MEDS ORDERED: Midazolam HCl 2 mg/2 ml Vial ONE (07:39)
[2021-10-02] MEDS: Enoxaparin Sodium 40 MG/0.4 ML SYRINGE SC SCH (08:51)
[2021-10-02] MEDS ORDERED: Aspirin 81 mg Enteric Coated Tablet PO SCH (10:30)
[2021-10-02] MEDS ORDERED: Atenolol 25 MG TAB PO SCH (10:30)
[2021-10-02 11:53] VITALS: TEMP 98.1
[2021-10-02 13:59] VITALS: BP 143/65
[2021-10-03] MEDS ORDERED: Aspirin 81 mg Enteric Coated Tablet PO SCH (09:00)
[2021-10-03] MEDS ORDERED: Atenolol 25 MG TAB PO SCH (09:00)
== END 2021-10-02 13:56 | disposition home or self-care (01) | DRG 243 ==
LOC: ERS 18:04 → 2SW 22:23 → OBSVTOIN 10-01 11:43
PROVIDERS: ADMIT Internal Medicine; ATTEND Internal Medicine
PROC: 0JH606Z Insertion of Pacemaker, Dual Chamber into Chest Subcutaneous Tissue and Fascia, Open Approach (ICD-10-PCS; principal; 2021-10-02)
PROC: 02H63JZ Insertion of Pacemaker Lead into Right Atrium, Percutaneous Approach (ICD-10-PCS; 2021-10-02)
PROC: 02HK3JZ Insertion of Pacemaker Lead into Right Ventricle, Percutaneous Approach (ICD-10-PCS; 2021-10-02)
DX: I49.5 Sick sinus syndrome (principal); I47.1 Supraventricular tachycardia; I10 Essential (primary) hypertension; E78.5 Hyperlipidemia, unspecified; I25.10 Atherosclerotic heart disease of native coronary artery without angina pectoris; K21.9 Gastro-esophageal reflux disease without esophagitis; G47.33 Obstructive sleep apnea (adult) (pediatric); F41.9 Anxiety disorder, unspecified; Z85.3 Personal history of malignant neoplasm of breast; Z86.718 Personal history of other venous thrombosis and embolism; Z79.82 Long term (current) use of aspirin; Z79.899 Other long term (current) drug therapy; Z87.891 Personal history of nicotine dependence; I44.0 Atrioventricular block, first degree; E87.6 Hypokalemia; E66.01 Morbid (severe) obesity due to excess calories; Z68.30 Body mass index [BMI] 30.0-30.9, adult; Z96.653 Presence of artificial knee joint, bilateral; I95.1 Orthostatic hypotension; Z66 Do not resuscitate; Z20.822 Contact with and (suspected) exposure to COVID-19
CPT/HCPCS: 33208; 36415; 71045; 71275; 80048; 80053; 83605; 83690; 83735; 83880; 84145; 84484; 85025; 85379; 93005; 93010; 93798; 94760; 96361; 96365; 96366; 96367; 96372; 96375; 99152; 99153; G0378; J0690; J0692; J1580; J1650; J2250; J3370; J3475; J7050; Q9967; U0002

== ENCOUNTER 2022-05-08 19:50 | Emergency (ER) | payer MEDICARE ==
[2022-05-08 21:37] LABS: #Eosinphils 0.2 thou/uL (0.0-0.7); #Lymphocytes 1.9 thou/uL (1.20-3.40); #Monocytes 0.5 thou/uL (0.11-0.59); #Neutrophils 2.2 thou/uL (1.40-6.50); %Basophils 0.2 % (0.0-1.0); %Eosinophils 4.1 % (0.0-10.0); %Lymphocytes 39.7 % (21.0-51.0); %Monocytes 10.3 % (0.0-10.0); %Neutrophils 45.7 % (42.0-75.0); Hemoglobin 12.1 g/dL (12.0-16.0); Mean Corpuscular HGB CONC 35.2 g/dL (32.0-36.0); Mean Corpuscular Hemoglobin 29.8 pg (27.0-31.0); Mean Corpuscular Volume 84.7 fl (78.0-98.0); Mean Platelet Volume 6.5 fL (7.4-10.4); Platelet Count 222 10x3/uL (130-400); Red Blood Cell (RBC) Count 4.05 mill/uL (4.20-5.40); White Blood Cell (WBC) Count 4.7 10x3/uL (4.8-10.8)
[2022-05-08 21:56] LABS: ALT (SGPT) 11 U/L (8-55); AST (SGOT) 14 U/L (5-34); Alkaline Phosphatase 74 U/L (40-110); Anion Gap 9 mmol/L (10-20); BUN (Urea Nitrogen) 14 mg/dL (9.8-20.1); Bilirubin, Total 0.3 mg/dL (0.2-1.2); Calc. Creatinine Clearance 0 mL/min (70-130); Calcium 9.2 mg/dL (7.8-10.44); Carbon Dioxide 27 mmol/L (23-31); Chloride 107 mmol/L (98-107); Estimated GFR 74; Globulin 2.5 g/dL (2.4-3.5); Glucose 108 mg/dL (83-110); Potassium 3.4 mmol/L (3.5-5.1); Protein, Total 6.5 g/dL (5.8-8.1); Sodium 140 mmol/L (136-145)
== END 2022-05-08 23:39 | disposition home or self-care (01) ==
LOC: ERS 19:50
DX: I10 Essential (primary) hypertension (principal); E78.5 Hyperlipidemia, unspecified; Z87.891 Personal history of nicotine dependence
CPT/HCPCS: 36415; 80053; 85025; 93005

== ENCOUNTER 2022-08-08 19:30 | Outpatient (CLI) | payer MEDICARE | END 2022-08-08 19:31 | disposition home or self-care (01) | LOC: SLEEPLAB 19:30 | PROVIDERS: ATTEND Internal Medicine Critical Care Medicine | DX: G47.33 Obstructive sleep apnea (adult) (pediatric) (principal); R06.83 Snoring; R35.1 Nocturia; K21.9 Gastro-esophageal reflux disease without esophagitis; G47.00 Insomnia, unspecified; R53.83 Other fatigue | CPT/HCPCS: 95811 ==